=== PATIENT | male | born 2000 | race Caucasian/White ===

== ENCOUNTER 2022-05-01 10:33 | Emergency (ER) | payer OTHER ==
--- NOTE | 2022-05-01 14:15 | ED Physician Documentation ---
History of Present Illness - Stated complaint Stated Complaint: L FINGER LAC - Chief complaint Chief Complaint: Laceration - Additonal information Additional information: History provided by patient. Reliable historian 21-year-old male presents emergency department for evaluation of a left thumb skin avulsion [place]. He reports that the exhaust pipes are actually quite sharp. His tetanus is up-to-date. His right hand dominant. Review of Systems Skin: reports: Laceration (s) PD PAST MEDICAL HISTORY - Allergies Allergies/Adverse Reactions: Allergies Allergy/AdvReac Type Severity Reaction Status Date / Time No Known Drug Allergies Allergy Verified 05/01/22 10:41 PD ED PE EXPANDED - Extremities Extremities: Left finger(s) (Left thumb with a deep avulsion to the medial radial side. Measuring about 0.25 x 1 cm in size. Active bleeding present. Normal flexion extension distally. Neurovascularly intact) Results - Vitals Vitals: Vital Signs - 24 hr 05/01/22 10:39 Temperature 36.0 C L Heart Rate 88 Respiratory 16 Rate Blood Pressure 140/80 H O2 Saturation 97 Oxygen O2 Source Room air Procedures - General procedure General procedure: Left thumb skin avulsion was thoroughly cleansed with chlorhexidine and saline. Hemostasis was achieved by placing a small amount of Surgicel over the wound. Tetanus is up-to-date PD Medical Decision Making - ED course Complexity details: considered differential, d/w patient ED course: 21-year-old male presents emergency department for evaluation of a left thumb skin avulsion [place]. Patient's tetanus is up-to-date. The skin avulsion is not amenable to primary closure. In order to achieve hemostasis we did apply Surgicel to the wound. We discussed routine wound care as well as emergent return precautions for concerns of infection. No prescriptions were given upon discharge Departure - Departure Disposition: 01 Home, Self Care Clinical Impression: Avulsion of skin of finger Qualifiers: Encounter type: initial encounter Qualified Code(s): S61.209A - Unspecified open wound of unspecified finger without damage to nail, initial encounter Condition: Stable Record reviewed to determine appropriate education?: Yes Comments: Chance the laceration or cut of your skin is simply deep avulsion or abrasion that we cannot close with sutures. We did place Surgicel which is a type of foam over this avulsion which will help it to form clot. Tomorrow when you change your dressing the Surgicel will appear black. However there should be no further bleeding. This will simply wear away over the next week or so. When you are at work your thumb should be covered with a glove to prevent infection. However I expect that this deep avulsion will simply heal over the next 1 to 2 weeks. Return to the ER if you have any concerns of infection.
[2022-05-01 14:18] VITALS: BP 133/79
== END 2022-05-01 14:17 | disposition home or self-care (01) ==
LOC: ED 10:33
DX: S61.012A Laceration without foreign body of left thumb without damage to nail, initial encounter (principal); W26.8XXA Contact with other sharp object(s), not elsewhere classified, initial encounter; Y93.89 Activity, other specified; Y92.138 Other place on military base as the place of occurrence of the external cause; Y99.1 Military activity
CPT/HCPCS: 99282

== ENCOUNTER 2023-07-04 08:00 | Outpatient (CLI) | payer OTHER ==
[2023-07-04 20:49] LABS: BILIRUBIN,URINE NEGATIVE (NEGATIVE); GLUCOSE, URINE (UA) NEGATIVE (NEGATIVE); KETONES,URINE (UA) NEGATIVE (NEGATIVE); LEUKOCYTE ESTERASE, URINE NEGATIVE (NEGATIVE); NITRITE,URINE NEGATIVE (NEGATIVE); OCCULT BLOOD,URINE NEGATIVE (NEGATIVE); PROTEIN,URINE NEGATIVE (NEGATIVE); UROBILINOGEN,URINE 0.2 (NORMAL) E.U./dL (NORMAL)
[2023-07-04 20:54] LABS: CLARITY,URINE CLOUDY (CLEAR)
[2023-07-04 21:11] LABS: AMORPHOUS SEDIMENT,UR Marked /LPF; BACTERIA,URINE Rare /HPF (None Seen); RBC,URINE None Seen /HPF (0-5); SQUAMOUS EPITHELIAL CELL,UR RARE Squamous (<= Few); WBC,URINE 0-3 /HPF (0-3)
[2023-07-04 22:51] LABS: CHLAMYDIA TRACHOMATIS DNA NEGATIVE (NEGATIVE); NEISSERIA GONORRHOEAE DNA NEGATIVE (NEGATIVE); TRICHOMONAS VAGINALIS DNA NEGATIVE (NEGATIVE)
== END 2023-07-04 23:59 | disposition home or self-care (01) ==
LOC: LAB.N 08:00
PROVIDERS: ATTEND Emergency Medicine
DX: N28.89 Other specified disorders of kidney and ureter (principal)
CPT/HCPCS: 81001; 87086; 87491; 87591; 87661